=== PATIENT | female | born 1955 | race Asian ===

== ENCOUNTER 2020-04-22 20:46 | Emergency (ER) | payer MEDICARE ==
[~2020-04-22] VITALS: Ht 157.5 cm; Wt 44.9 kg
[2020-04-22 22:55] VITALS: BP 147/71
== END 2020-04-22 23:47 | disposition home or self-care (01) ==
LOC: ER 20:50
DX: U07.1 COVID-19 (principal); J12.89 Other viral pneumonia; J02.9 Acute pharyngitis, unspecified; R51.9 Headache, unspecified; R06.02 Shortness of breath; E78.5 Hyperlipidemia, unspecified; Z87.440 Personal history of urinary (tract) infections
CPT/HCPCS: 36415; 71045; 87426